=== PATIENT | male | born 1965 | race Caucasian/White ===

== ENCOUNTER 2017-11-12 08:53 | Day surgery (SDC) | payer OTHER ==
[2017-11-12 09:43] LABS: POTASSIUM 4.6 mmol/L (3.5-5.1)
[2017-11-12] MEDS ORDERED: IODIXANOL LOCM 100 ML BTL (10:14)
[2017-11-12] MEDS ORDERED: HEPARIN 1000 UNITS/NS (A-LINE) 1,000 ML (10:14)
[2017-11-12] MEDS ORDERED: LIDOCAINE 1% (MDV) 20 ML INJ (10:14)
[2017-11-12] MEDS ORDERED: FENTAnyl 50 MCG/ML VIAL (10:44)
[2017-11-12] MEDS ORDERED: MIDAZOLAM 1 MG/ML 2 ML INJ (10:44)
[2017-11-12] MEDS ORDERED: IOHEXOL 350MG/ML 50 ML BTL (10:50)
[2017-11-12] MEDS ORDERED: HEPARIN 1000 UNITS/ML 10 ML INJ (10:54)
== END 2017-11-12 12:20 | disposition home or self-care (01) ==
LOC: SDS 08:53
DX: I12.0 Hypertensive chronic kidney disease with stage 5 chronic kidney disease or end stage renal disease (principal); N18.6 End stage renal disease
CPT/HCPCS: 37248; 37249; 75822; 75825; 84132